=== PATIENT | male | born 1990 | race Caucasian/White ===

== ENCOUNTER 2016-07-31 | Emergency (ER) | payer OTHER ==
[~2016-07-31] VITALS: Ht 172.7 cm; Wt 65.0 kg
[2016-07-31 00:06] VITALS: TEMP 36.8; Ht 172.7 cm; Wt 65.0 kg
[2016-07-31] MEDS ORDERED: ONDANSETRON INJ 2 MG/ML 2 ML VIAL IV STA (00:06)
[2016-07-31 00:10] VITALS: O2SAT 96
[2016-07-31] MEDS ORDERED: SODIUM CHLORIDE 0.9% 1000ML 1,000 ML IV ONE ×2 (00:15→01:30)
[2016-07-31] MEDS ORDERED: ONDANSETRON 8 MG/54 ML D5W ONE (00:23)
[2016-07-31 00:37] LABS: BASO % 0.3 %; BASO ABS # 0.05 K/uL (0-0.2); COMPLETE YES; EOS % 1.1 %; HEMATOCRIT 47.4 % (42-52); IG% 1.2 %; LYMPH % 21.5 %; LYMPH ABS # 3.65 K/uL (1.2-3.4); MEAN CELL VOLUME 85.7 fL (80-100); MEAN CORPUSCULAR HEMOGLOBIN 31.1 pg (25-34); MEAN CORPUSCULAR HGB CONC 36.3 g/dl (32-36); MEAN PLATELET VOLUME 9.9 fL (7.4-10.4); MONO % 6.8 %; NEUT % 69.1 %; PLATELET COUNT 315 K/uL (130-400); RED BLOOD COUNT 5.53 M/uL (4.7-6.1); WHITE BLOOD COUNT 16.94 K/uL (4.8-10.8)
[2016-07-31 00:59] LABS: BUN/CREATININE RATIO 10.1 (10-20); CALCIUM 8.7 mg/dl (8.5-10.1); CREATININE 1.3 mg/dl (0.60-1.40)
[2016-07-31 01:02] LABS: ALB/GLOB RATIO 1.4 (0.9-2)
[2016-07-31] MEDS ORDERED: ONDANSETRON HOME PACK 4MG OD TAB PO ONE (03:30)
[2016-07-31 03:46] VITALS: BP 130/77; PULSE 100; O2SAT 98
--- NOTE | 2016-08-03 19:03 | EMERGENCY ROOM VISIT NOTE ---
History First contact with patient: 00:02 Chief Complaint: ILLNESS Stated Complaint: NAUSEA/VOMITING/ALCOHOL USE History of Present Illness The patient is a 25 year old male who presents to the Emergency Room with complaints of nausea and vomiting for the past one to 2 hours. The patient states that he has felt ill for the past few days, but not to this extent. He did have 2 drinks tonight to celebrate the , and this seems to exacerbate his symptoms. He has not had fever or chills. No chest pain, chest tightness, or shortness of breath. No distinct abdominal pain. His vomitus is primarily water. The patient does not of chronic medical disease or recent travel history. He rates his discomfort a 5/10. Review of Systems More than 10 systems were reviewed and otherwise negative with the exception of history of present illness. Past Medical/Surgical History No chronic medical disease Family History No pertinent family history Social History Smoking Status: Current Some Day Smoker Occupation Status: [employer] student Current/Historical Medications No Active Prescriptions or Reported Meds Allergies Coded Allergies: No Known Allergies (Unverified , 07/31/16) Physical Exam Vital Signs Date Time Temp Pulse Resp B/P Pulse Ox O2 Delivery O2 Flow Rate FiO2 07/31/16 03:46 100 16 130/77 98 07/31/16 03:31 100 16 130/77 98 Room Air 07/31/16 02:00 124 25 133/80 98 Room Air 07/31/16 01:41 140/77 97 Room Air 07/31/16 01:00 127 16 121/68 97 Room Air 07/31/16 00:30 122 19 96 Room Air 07/31/16 00:10 96 Room Air 07/31/16 00:08 130 07/31/16 00:06 36.8 130 18 134/91 96 Room Air Pain Rating (0-10): 0 Physical Exam VITALS: Vitals are noted on the nurse's note and reviewed by myself. Vital signs stable. GENERAL: Well-developed, well-nourished, male who does not appear acute distress. He is holding an emesis bag HEAD: Normocephalic atraumatic. EARS: External ear normal. External auditory canals clear, tympanic membranes pearly collazo without erythema or effusion bilaterally. EYES: Pupils equal round and reactive to light and accommodation. Conjunctivae without injection, sclerae without icterus. Extraocular movements intact. NOSE: Patent, turbinates without inflammation or discharge. MOUTH: Mucous membranes moist. Tonsils are not enlarged. Pharynx without erythema, blood, or exudate. Uvula midline. Airway patent. NECK: Supple without nuchal rigidity. No lymphadenopathy. No thyromegaly. Cervical spine is nontender. HEART: Regular rate and rhythm without murmurs gallops or rubs. LUNGS: Clear to auscultation bilaterally without wheezes, rales or rhonchi. No retractions or accessory muscle use. ABDOMEN: Positive normal bowel sounds x 4. Soft, nontender, without masses or organomegaly. No guarding or rebound tenderness. Medical Decision & Procedures Laboratory Results 07/31/16 00:15 Red Blood Count 5.53, Mean Corpuscular Volume 85.7, Mean Corpuscular Hemoglobin 31.1, Mean Corpuscular Hemoglobin Concent 36.3, Mean Platelet Volume 9.9, Neutrophils (%) (Auto) 69.1, Lymphocytes (%) (Auto) 21.5, Monocytes (%) (Auto) 6.8, Eosinophils (%) (Auto) 1.1, Basophils (%) (Auto) 0.3, Neutrophils # (Auto) 11.69, Lymphocytes # (Auto) 3.65, Monocytes # (Auto) 1.15, Eosinophils # (Auto) 0.19, Basophils # (Auto) 0.05 07/31/16 00:15 Test 07/31/16 00:15 White Blood Count 16.94 K/uL (4.8-10.8) Red Blood Count 5.53 M/uL (4.7-6.1) Hemoglobin 17.2 g/dL (14.0-18.0) Hematocrit 47.4 % (42-52) Mean Corpuscular Volume 85.7 fL (80-100) Mean Corpuscular Hemoglobin 31.1 pg (25-34) Mean Corpuscular Hemoglobin Concent 36.3 g/dl (32-36) Platelet Count 315 K/uL (130-400) Mean Platelet Volume 9.9 fL (7.4-10.4) Neutrophils (%) (Auto) 69.1 % Lymphocytes (%) (Auto) 21.5 % Monocytes (%) (Auto) 6.8 % Eosinophils (%) (Auto) 1.1 % Basophils (%) (Auto) 0.3 % Neutrophils # (Auto) 11.69 K/uL (1.4-6.5) Lymphocytes # (Auto) 3.65 K/uL (1.2-3.4) Monocytes # (Auto) 1.15 K/uL (0.11-0.59) Eosinophils # (Auto) 0.19 K/uL (0-0.5) Basophils # (Auto) 0.05 K/uL (0-0.2) RDW Standard Deviation 37.7 fL (36.4-46.3) RDW Coefficient of Variation 12.1 % (11.5-14.5) Immature Granulocyte % (Auto) 1.2 % Immature Granulocyte # (Auto) 0.21 K/uL (0.00-0.02) Anion Gap 14.0 mmol/L (3-11) Est Creatinine Clear Calc Drug Dose 81.3 ml/min Estimated GFR () 89.1 Estimated GFR (Non- 76.9 BUN/Creatinine Ratio 10.1 (10-20) Calcium Level 8.7 mg/dl (8.5-10.1) Total Bilirubin 0.4 mg/dl (0.2-1) Aspartate Amino Transf (AST/SGOT) 20 U/L (15-37) Alanine Aminotransferase (ALT/SGPT) 22 U/L (12-78) Alkaline Phosphatase 93 U/L (45-117) Total Protein 7.6 gm/dl (6.4-8.2) Albumin 4.4 gm/dl (3.4-5.0) Globulin 3.2 gm/dl (2.5-4.0) Albumin/Globulin Ratio 1.4 (0.9-2) Lipase 103 U/L (73-393) Ethyl Alcohol mg/dL 44.0 mg/dl (0-3) Medications Administered Medications (Trade) Dose Ordered Sig/Justice Route Start Time Stop Time Status Last Admin Dose Admin Sodium Chloride (Nss 1000ml) 1,000 ml @ 999 mls/hr Q1H1M ONCE IV 07/31/16 00:15 07/31/16 01:15 DC 07/31/16 00:28 999 MLS/HR Ondansetron HCl 8 mg 8 mg STK-MED ONCE .ROUTE 07/31/16 00:23 07/31/16 00:25 DC 07/31/16 00:28 8 MG Sodium Chloride (Nss 1000ml) 1,000 ml @ 999 mls/hr Q1H1M ONCE IV 07/31/16 01:30 07/31/16 02:30 DC 07/31/16 01:44 999 MLS/HR Ondansetron HCl (ZOFRAN ODT 4MG Home Pack) 1 [facility] ONCE PO 07/31/16 03:30 07/31/16 03:31 DC 07/31/16 03:44 1 [facility] ED Course Physical exam and history were performed. Nursing notes and EMR were reviewed. Patient appears to have nausea and vomiting for the past several hours. He appears nauseated without vomiting here in the department. Although he has been drinking, he does not appear intoxicated. IV access was established and labs were obtained. The patient was hydrated with normal saline and given IV Zofran for his symptoms. The patient's blood work is as above and was reviewed. He does have an elevated white blood cell count of nearly 17,000, however this is felt to be from his vomiting. He does not have a significant anemia or gross electrolyte imbalance. His alcohol is 44, and I suspect this is only a minor component to his symptoms. The patient was reevaluated multiple times with course of his stay. He had significant improvement of his discomfort after hydration and Zofran. The patient will be given a short course of Zofran to use at home. I suspect his symptoms are viral or foodborne in nature. He should avoid alcohol while sick. He is to drink plenty of fluids and remain well hydrated. The patient was pleased with this plan of care and voiced understanding. The chart was completed utilizing [employer] Speech Voice Recognition Software. Grammatical errors, random word insertions, pronoun errors, and incomplete sentences are an occasional consequence of this system due to software limitations, ambient noise, and hardware issues. Any formal questions or concerns about the content, text, or information contained within the body of this dictation should be directly addressed to the provider for clarification. . Medical Decision Differential diagnosis: Etiologies such as gastroenteritis, food borne illness, infections, appendicitis , diverticulitis, inflammatory bowel disease, obstruction, GI bleed, biliary pathology, as well as others were entertained. Impression Primary Impression: Nausea and vomiting Departure Information Dispostion Home / Self-Care Condition GOOD Prescriptions No Active Prescriptions or Reported Meds Forms HOME CARE DOCUMENTATION FORM, IMPORTANT VISIT INFORMATION Patient Instructions My [facility] Additional Instructions You were seen and evaluated today on an emergency basis only. This is not a substitute for, or an effort to provide, complete comprehensive medical care. It is not possible to recognize and treat all injuries or illnesses in a single emergency department visit. For this reason it is recommended that you followup with [facility] this week for ongoing care and evaluation. Zofran 1 tablet every 6 hrs as needed for nausea. You are welcome to return to the emergency department anytime with new, worsening, or concerning symptoms.
== END 2016-07-31 03:47 | disposition home or self-care (01) ==
LOC: C.EDB 00:02
DX: R11.2 Nausea with vomiting, unspecified (principal); F17.200 Nicotine dependence, unspecified, uncomplicated